=== PATIENT | female | born 1995 | race African-American/Black ===

== ENCOUNTER 2017-03-01 18:20 | Emergency (ER) | payer MEDICAID, OTHER ==
[~2017-03-01] VITALS: Ht 154.9 cm; Wt 50.0 kg
[2017-03-01 18:23] VITALS: BP 121/72; PULSE 90; RESP 20; TEMP 98.5; O2SAT 100
--- NOTE | 2017-03-01 18:33 | PD ---
Physical Exam Date Seen by Provider: Mar 01, 2017 Time Seen by Provider: 18:32 Data Data Last Documented VS Vital Signs Date Time Temp Pulse Resp B/P Pulse Ox O2 Delivery O2 Flow Rate FiO2 03/01/17 18:23 98.5 90 20 121/72 100 Room Air [facility] Supervised Visit with [facility]: No Narrative Course 21 YO F with complaint of ear pain x 1 day. States hit her head on a door. Vitals reviewed. Awaiting bed placement. Scripts No Active Prescriptions or Reported Meds Loni Luo Mar 01, 2017 18:33
[2017-03-01] MEDS ORDERED: OFLO0.3D9 RIGHT EAR (18:41)
--- NOTE | 2017-03-01 18:43 | PD ---
HPI Chief Complaint: ENT Complaint Time Seen by Provider: 18:35 Travel History International Travel<30 days: No Contact w/Intl Traveler<30days: No Traveled to known affect area: No History of Present Illness HPI 21-year-old female here for evaluation of right ear pain. She reports that 1 PM today she was opening the door to her house to let her dogs out when the door hit her in her right ear. She now has pain in her right ear canal, muffled hearing in the right ear. Pain is an aching pain, constant. No alleviating factors. Denies any drainage from the ear. Denies any generalized headache, nausea or vomiting, amnesia. No other complaints. PFSH Past Medical History Bipolar Disorder: Yes Immunizations Current: Yes : 2 Para: 1 Miscarriage: 1 Dilation and Curettage (D&C): Yes Social History Alcohol Use: No Tobacco Use: Yes Substance Use: No Allergies-Medications (Allergen,Severity, Reaction): Coded Allergies: Kiwi (Verified Allergy, Severe, SWELLING OF FACE AND SOB, 03/01/17) Tylenol/Codeine (Verified Allergy, Severe, hives, 03/01/17) Keflex (Verified Adverse Reaction, Intermediate, abdominal cramping and diarrhea, 03/01/17) Reported Meds & Prescriptions Reported Meds & Active Scripts Active Ofloxacin Otic Drops 0.3 % Drops 5 Drop RIGHT EAR DAILY 10 Days Review of Systems Except as stated in HPI: all other systems reviewed are Neg Physical Exam Narrative GENERAL: Well-developed well-nourished female in no acute distress SKIN: Warm and dry. HEAD: Atraumatic. Normocephalic. EYES: Pupils equal and round. No scleral icterus. No injection or drainage. ENT: No nasal bleeding or discharge. Mucous membranes pink and moist. Right tympanic membrane perforation is present. There is some blood noted in the external ear canal. No auricular tenderness. No mastoid tenderness. NECK: Trachea midline. No JVD. NEUROLOGICAL: Awake and alert. No obvious cranial nerve deficits. Motor grossly within normal limits. Normal speech. Data Data Last Documented VS Vital Signs Date Time Temp Pulse Resp B/P Pulse Ox O2 Delivery O2 Flow Rate FiO2 03/01/17 18:23 98.5 90 20 121/72 100 Room Air MDM Medical Decision Making Medical Screen Exam Complete: Yes Emergency Medical Condition: Yes Medical Record Reviewed: Yes Differential Diagnosis Tympanic membrane perforation, contusion, hematoma, temporal fracture Narrative Course 21-year-old female presents with muffled hearing, pain in the right ear canal after a door hit her in the right ear. Examination reveals a tympanic membrane perforation. She has normal neurologic examination. The patient will be treated with ofloxacin otic solution, recommends outpatient follow-up with ENT. Diagnosis Primary Impression: Tympanic membrane perforation Qualified Code: H72.91 - Tympanic membrane perforation, right Referrals: Ear / Nose / Throat Specialist Additional Instructions: Use the medication as prescribed. Avoid getting water in right ear canal. Follow-up with ENT or primary care in 1 week for recheck. Return for any emergent medical conditions. Med/Other Pt SpecificInfo: Prescription(s) given Scripts Ofloxacin Otic Drops 0.3 % Drops5 Drop RIGHT EAR DAILY 10 Days Ref 0 Prov:Jovanny Almaraz MD 03/01/17 Disposition: 01 DISCHARGE HOME Condition: Stable hCava Gonzalez Mar 01, 2017 18:43
[2017-03-22] MEDS ORDERED: PREN29TA PO (13:16)
== END 2017-03-01 19:02 | disposition home or self-care (01) ==
LOC: NEPK 18:20
DX: H72.91 Unspecified perforation of tympanic membrane, right ear (principal); Z72.0 Tobacco use
CPT/HCPCS: 99283

== ENCOUNTER 2017-03-23 20:16 | Emergency (ER) | payer OTHER ==
[~2017-03-23] VITALS: Ht 154.9 cm; Wt 47.3 kg
[~2017-03-23 20:16] MED LIST: OFLO0.3D9 RIGHT EAR; PREN29TA PO
[2017-03-23 20:18] VITALS: BP 121/64; PULSE 92; RESP 18; TEMP 98.4; O2SAT 98
[2017-03-23] MEDS ORDERED: ONDANSETRON HCL 4 MG/2 ML VIAL IVP ONE (20:45)
[2017-03-23] MEDS ORDERED: SODIUM CHLORIDE 0.9% FLUSH 10 ML FLUSH IVF PRN (20:45)
[2017-03-23] MEDS ORDERED: SODIUM CHLOR 0.9% 1000 ML INJ 1,000 ML IV SCH (20:45)
--- NOTE | 2017-03-23 20:48 | PD ---
HPI Chief Complaint: Related Problem Time Seen by Provider: 20:45 Travel History International Travel<30 days: No Contact w/Intl Traveler<30days: No Traveled to known affect area: No History of Present Illness HPI The patient is a G3, P1, A1 female that comes in for nausea and vomiting. She is 5 weeks . She is a frequent visitor to emergency department. She saw her bilingual speech language pathologist 2 days ago and everything was fine. She does have frequency and urgency but denies any dysuria. He does have some slight bilateral flank pain. She denies any fever or vaginal bleeding. She denies any diarrhea. PFSH Past Medical History Bipolar Disorder: Yes Immunizations Current: Yes ?: LMP: 02-02-17 : 2 Para: 1 Miscarriage: 1 Dilation and Curettage (D&C): Yes Social History Alcohol Use: No Tobacco Use: Yes (1ppd) Substance Use: No Allergies-Medications (Allergen,Severity, Reaction): Coded Allergies: Kiwi (Verified Allergy, Severe, SWELLING OF FACE AND SOB, 03/23/17) Tylenol/Codeine (Verified Allergy, Severe, hives, 03/23/17) Keflex (Verified Adverse Reaction, Intermediate, abdominal cramping and diarrhea, 03/23/17) Reported Meds & Prescriptions Reported Meds & Active Scripts Active Zofran (Ondansetron HCl) 4 Mg Tab 4 Mg PO Q6HR PRN Plus Iron 29-1 mg ( Vit-Iron Carbonyl) 1 Tab Tab 1 Tab PO DAILY Ofloxacin Otic Drops 0.3 % Drops 5 Drop RIGHT EAR DAILY 10 Days Review of Systems Except as stated in HPI: all other systems reviewed are Neg Physical Exam Narrative GENERAL: The patient is alert, oriented 3 in minimal apparent distress with her bilateral pelvic discomfort. Her vital signs are normal except for heart rate of 92. SKIN: Focused skin assessment warm/dry. HEAD: Atraumatic. Normocephalic. EYES: Pupils equal and round. No scleral icterus. No injection or drainage. ENT: No nasal bleeding or discharge. Mucous membranes pink and moist. NECK: Trachea midline. No JVD. CARDIOVASCULAR: Regular rate and rhythm. No murmur appreciated. RESPIRATORY: No accessory muscle use. Clear to auscultation. Breath sounds equal bilaterally. GASTROINTESTINAL: Abdomen soft, with minimal discomfort to direct palpation on the bilateral pelvis, nondistended. Hepatic and splenic margins not palpable. No guarding or rebound is present. MUSCULOSKELETAL: No obvious deformities. No clubbing. No cyanosis. No edema. NEUROLOGICAL: Awake and alert. No obvious cranial nerve deficits. Motor grossly within normal limits. Normal speech. PSYCHIATRIC: Appropriate mood and affect; insight and judgment normal. Data Data Last Documented VS Vital Signs Date Time Temp Pulse Resp B/P Pulse Ox O2 Delivery O2 Flow Rate FiO2 03/23/17 20:31 16 03/23/17 20:18 98.4 92 121/64 98 Orders Beta Hcg (Quant/Titer) (03/23/17 20:45) Complete Blood Count With Diff (03/23/17 20:45) Basic Metabolic Panel (Bmp) (03/23/17 20:45) Urinalysis - C+S If Indicated (03/23/17 20:45) Sodium Chloride 0.9% Flush (Ns Flush) (03/23/17 20:45) Ondansetron Inj (Zofran Inj) (03/23/17 20:45) Sodium Chlor 0.9% 1000 Ml Inj (Ns 1000 M (03/23/17 20:45) Labs Laboratory Tests Test 03/23/17 21:05 White Blood Count 12.2 TH/MM3 Red Blood Count 5.06 MIL/MM3 Hemoglobin 11.7 GM/DL Hematocrit 37.3 % Mean Corpuscular Volume 73.6 FL Mean Corpuscular Hemoglobin 23.1 PG Mean Corpuscular Hemoglobin 31.3 % Concent Red Cell Distribution Width 13.2 % Platelet Count 225 TH/MM3 Mean Platelet Volume 9.5 FL Neutrophils (%) (Auto) 74.1 % Lymphocytes (%) (Auto) 19.1 % Monocytes (%) (Auto) 4.7 % Eosinophils (%) (Auto) 1.0 % Basophils (%) (Auto) 1.1 % Neutrophils # (Auto) 9.1 TH/MM3 Lymphocytes # (Auto) 2.3 TH/MM3 Monocytes # (Auto) 0.6 TH/MM3 Eosinophils # (Auto) 0.1 TH/MM3 Basophils # (Auto) 0.1 TH/MM3 CBC Comment AUTO DIFF Urine Collection Type VOIDED Urine Color YELLOW Urine Turbidity CLEAR Urine pH 6.5 Urine Specific [place] 1.011 Urine Protein 30 mg/dL Urine Glucose (UA) NEG mg/dL Urine Ketones NEG mg/dL Urine Occult Blood NEG Urine Nitrite NEG Urine Bilirubin NEG Urine Leukocyte Esterase NEG Urine WBC 0-2 /hpf Urine Squamous Epithelial 6-8 /hpf Cells Urine Transitional Epithelial 0-2 /hpf Cells Urine Bacteria RARE /hpf Microscopic Urinalysis Comment CULT NOT INDICATED Sodium Level 140 MEQ/L Potassium Level 3.4 MEQ/L Chloride Level 104 MEQ/L Carbon Dioxide Level 25.8 MEQ/L Anion Gap 10 MEQ/L Blood Urea Nitrogen 4 MG/DL Creatinine 0.63 MG/DL Estimat Glomerular Filtration 144 ML/MIN Rate Random Glucose 90 MG/DL Calcium Level 9.1 MG/DL Human Chorionic Gonadotropin, [address]303 MIU/ML Quant MDM Medical Decision Making Medical Screen Exam Complete: Yes Emergency Medical Condition: Yes Medical Record Reviewed: Yes Interpretation(s) The CBC shows a white count of 12,200 but is otherwise unremarkable. The basic metabolic profile shows a potassium of 2.4 but is otherwise normal. The urinalysis shows 30 protein but otherwise is normal and culture is not indicated. The quantitative beta-hCG shows 89,653. Differential Diagnosis Hyperemesis gravidarum, pyelonephritis, cystitis, electrolyte disorder, dehydration, Narrative Course The patient has hyperemesis gravidarum. Plan: She is to increase her liquid intake and is given Zofran. She is to follow-up with her bilingual speech language pathologist. Diagnosis Primary Impression: Hyperemesis gravidarum Additional Instructions: Increase clear liquids and make sure you stay hydrated. Follow-up with your bilingual speech language pathologist as soon as possible. The nausea pills one tablet every 6 hours as needed for nausea. Med/Other Pt SpecificInfo: Prescription(s) given Scripts Ondansetron (Zofran)4 Mg Tab4 Mg PO Q6HR PRN (NAUSEA OR VOMITING) #30 TAB Ref 0 Prov:Denny Coelho MD 03/23/17 Disposition: 01 DISCHARGE HOME Condition: Stable Denny Coelho MD Mar 23, 2017 20:48
[2017-03-23 21:16] LABS: BLOOD, URINE NEG (NEG); GLUCOSE,URINE NEG (NEG); KETONE, URINE NEG (NEG); NITRITE,URINE NEG (NEG); PH, URINE 6.5 (5.0-8.5)
[2017-03-23 21:17] LABS: AUTOMATED NEUTROPHIL # 9.1 TH/MM3 (1.8-7.7); BASOPHIL # 0.1 TH/MM3 (0-0.2); BASOPHIL % 1.1 % (0.0-2.0); EOSINOPHIL # 0.1 TH/MM3 (0-0.4); HEMATOCRIT 37.3 % (35.0-46.0); LYMPH % 19.1 % (9.0-44.0); LYMPHOCYTE # 2.3 TH/MM3 (1.0-4.8); MEAN CELL VOLUME 73.6 FL (80.0-100.0); MEAN CORPUSCULAR HEMOGLOBIN 23.1 PG (27.0-34.0); MEAN CORPUSCULAR HGB CONC 31.3 % (32.0-36.0); MONO % 4.7 % (0.0-8.0); NEUT % 74.1 % (16.0-70.0); PLATELET COUNT 225 TH/MM3 (150-450); RED BLOOD COUNT 5.06 MIL/MM3 (4.00-5.30); RED CELL DISTRIBUTION WIDTH 13.2 % (11.6-17.2); WHITE BLOOD COUNT 12.2 TH/MM3 (4.0-11.0)
[2017-03-23 21:21] LABS: HEMO FLAGS AUTO DIFF
[2017-03-23 21:24] LABS: METHOD OF COLLECTION VOIDED; POTASSIUM 3.4 MEQ/L (3.5-5.1); URINE COLOR YELLOW (YELLW/STRAW)
[2017-03-23 21:25] VITALS: BP 122/61; PULSE 84; RESP 18; O2SAT 97
[2017-03-23 21:25] LABS: BACTERIA, URINE RARE /hpf; COMMENT (UR) CULT NOT INDICATED; CULTURE IF INDICATED CULT NOT INDICATED; TRANSITIONAL EPI CELLS, URINE 0-2 /hpf; WBC, URINE 0-2 /hpf (0-5)
[2017-03-23 21:27] LABS: BICARBONATE 25.8 MEQ/L (21.0-32.0)
[2017-03-23] MEDS ORDERED: ZOFR4TAB PO (21:39)
[2017-03-23 21:58] LABS: PLATELET ESTIMATE SMEAR NORMAL (NORMAL); PLATELET MORPHOLOGY NORMAL (NORMAL); SCAN/DIFF AUTO DIFF CONFIRMED
[2017-03-30] MEDS ORDERED: PREN29TA PO (10:11)
[2017-03-30] MEDS ORDERED: ZOFR4TAB3 SL (10:24)
== END 2017-03-23 22:27 | disposition home or self-care (01) ==
LOC: PHED 20:16
DX: O21.0 Mild hyperemesis gravidarum (principal); Z3A.01 Less than 8 weeks gestation of pregnancy; F17.210 Nicotine dependence, cigarettes, uncomplicated
CPT/HCPCS: 80048; 81001; 84702; 85025; 96361; 96374; 99284; J2405; J7030

== ENCOUNTER 2017-04-05 18:57 | Emergency (ER) | payer OTHER ==
[~2017-04-05 18:57] MED LIST changes: -OFLO0.3D9 RIGHT EAR; +ZOFR4TAB3 SL
== END 2017-04-05 19:00 | disposition left against medical advice (07) ==
LOC: NED 18:57
DX: R11.10 Vomiting, unspecified (principal); Z53.21 Procedure and treatment not carried out due to patient leaving prior to being seen by health care provider
CPT/HCPCS: 99281

== ENCOUNTER → 2017-04-06 | Outpatient (CLI) | payer OTHER | LOC: HPND 08:34 | PROVIDERS: ATTEND Family Medicine | DX: Z34.90 Encounter for supervision of normal pregnancy, unspecified, unspecified trimester (principal) | CPT/HCPCS: 76801 ==

== ENCOUNTER → 2017-05-02 | Outpatient (CLI) | payer OTHER ==
[~2017-05-02] MED LIST changes: +FERR325T8 PO
== END ==
LOC: HPND 12:27
PROVIDERS: ATTEND Family Medicine
DX: Z36 Encounter for antenatal screening of mother (principal)
CPT/HCPCS: 36415; 76813

== ENCOUNTER → 2017-06-19 | Outpatient (CLI) | payer OTHER ==
[~2017-06-19] MED LIST changes: -ZOFR4TAB3 SL
== END ==
LOC: HPND 13:05
PROVIDERS: ATTEND Family Medicine
DX: Z36 Encounter for antenatal screening of mother (principal)
CPT/HCPCS: 76805

== ENCOUNTER 2017-08-01 16:07 | Emergency (ER) | payer OTHER ==
[~2017-08-01] VITALS: Ht 154.9 cm; Wt 55.0 kg
[~2017-08-01 16:07] MED LIST changes: +FERR325T18 PO; -FERR325T8 PO
[2017-08-01 16:18] VITALS: BP 137/63; PULSE 98; RESP 16; TEMP 98.9; O2SAT 97
[2017-08-01] MEDS ORDERED: ACETAMINOPHEN 325 MG TAB PO ONE (17:15)
--- NOTE | 2017-08-01 17:20 | RADRPT ---
EXAM DATE/TIME: 08/01/2017 16:55 [facility] COMPARISON: No previous studies available for comparison. INDICATIONS : Left hand pain after patient fell onto hand last night MEDICAL HISTORY : None. SURGICAL HISTORY : None. ENCOUNTER: Initial ACUITY: 1 day PAIN SCORE: 10/10 LOCATION: Left base of 4th and 5th metacarpals FINDINGS: Mildly displaced oblique fracture of the fourth metacarpal. Remaining osseous structures are intact. Joint spaces are maintained. Mild soft tissue prominence about the dorsal hand. CONCLUSION: 1. Mildly displaced oblique fourth metacarpal fracture. Javier Campos MD on August 01, 2017 at 17:18 Board Certified Radiologist. This report was verified electronically.
--- NOTE | 2017-08-01 17:54 | PD ---
HPI . Left hand injury Chief Complaint: Injury Time Seen by Provider: 16:25 Travel History International Travel<30 days: No Contact w/Intl Traveler<30days: No Traveled to known affect area: No History of Present Illness HPI 21-year-old female presents emergency department for evaluation of a left hand injury she sustained when she rolled out of bed last night and landed on her left hand. Patient denies any other injuries during this fall. Patient has a head or losing consciousness. Patient denies hitting her belly. Patient is 6 months at this time. Patient has no other major medical history. Left hand is neurovascularly intact. Patient doesn't take any daily medication outside of vitamin. PFSH Past Medical History Bipolar Disorder: Yes Diminished Hearing: No Immunizations Current: Yes Influenza Vaccination: No ?: LMP: 6 MOS : 2 Para: 1 Miscarriage: 1 Dilation and Curettage (D&C): Yes Social History Alcohol Use: No Tobacco Use: No Substance Use: No Allergies-Medications (Allergen,Severity, Reaction): Coded Allergies: codeine (Unverified Allergy, Severe, hives, 08/01/17) kiwi (Unverified Allergy, Severe, SWELLING OF FACE AND SOB, 08/01/17) cephalexin (Unverified Adverse Reaction, Intermediate, abdominal cramping and diarrhea, 08/01/17) Reported Meds & Prescriptions Reported Meds & Active Scripts Active Ferrous Sulfate 325 Mg (65 Mg Iron) Tablet 325 Mg PO BIDPC Plus Iron 29-1 mg ( Vit-Iron Carbonyl) 1 Tab Tab 1 Tab PO DAILY Review of Systems Except as stated in HPI: all other systems reviewed are Neg Physical Exam Narrative GENERAL: Well-nourished, well-developed 21-year-old female patient in no acute distress. Nontoxic appearing. SKIN: Focused skin assessment warm/dry. HEAD: Normocephalic. Atraumatic. EYES: No scleral icterus. No injection or drainage. NECK: Supple, trachea midline. No JVD or lymphadenopathy. CARDIOVASCULAR: Regular rate and rhythm without murmurs, gallops, or rubs. RESPIRATORY: Breath sounds equal bilaterally. No accessory muscle use. GASTROINTESTINAL: Rounded, 6 months . Nontender. MUSCULOSKELETAL: Dorsal aspect of left hand erythematous and ecchymotic proximal to the fourth and fifth phalanges. Data Data Last Documented VS Vital Signs Date Time Temp Pulse Resp B/P (MAP) Pulse Ox O2 Delivery O2 Flow Rate FiO2 08/01/17 16:18 98.9 98 16 137/63 (87) 97 Orders Orders Hand, Complete (Cpr8esf) (08/01/17 16:39) Ice/Cold Pack (08/01/17 16:39) Acetaminophen (Tylenol) (08/01/17 17:15) Splint Or Brace Apply/Monitor (08/01/17 17:55) Ed Discharge Order (08/01/17 17:55) MDM Medical Decision Making Medical Screen Exam Complete: Yes Emergency Medical Condition: Yes Differential Diagnosis Differential diagnoses include but not limited to left hand sprain, left hand contusion, left hand fracture Narrative Course 21-year-old female patient presents emergency department for evaluation of left hand pain after she rolled out of bed last night landed on her left hand. Patient is 6 months . Patient denies any other injuries during this fall. X-ray of the left hand ordered and pending. Ice applied to left hand. Tylenol ordered for pain. X-ray shows mildly displaced oblique fourth metacarpal fracture. Patient case discussed with my attending Dr. Valenzuela and patient is placed in a volar splint and discharged home with instructions to follow-up with Dr. Galeas, a hand surgeon. Patient instructed to use Tylenol for pain management. Rice therapy instructions given for left hand. Patient discharged home. Last Impressions Hand X-Ray 08/01/17 1639 Signed Impressions: Service Date/Time: Tuesday, August 01, 2017 16:55 - CONCLUSION: 1. Mildly displaced oblique fourth metacarpal fracture. Javier Campos MD Diagnosis Primary Impression: Left hand fracture Qualified Codes: S62.92XA - Unspecified fracture of left wrist and hand, initial encounter for closed fracture Referrals: Rian Galeas III, MD Patient Instructions: General Instructions, Hand Fracture (ED) Additional Instructions: Please return to emergency department if your symptoms return or worsen. Follow up with hand surgeon. Ice therapy to left hand, rest, ice, splint and elevate when resting. Disposition: 01 DISCHARGE HOME Condition: Stable Samara Angulo LISSETT Aug 01, 2017 17:54
== END 2017-08-01 18:03 | disposition home or self-care (01) ==
LOC: PHEFT 16:07
DX: S62.305A Unspecified fracture of fourth metacarpal bone, left hand, initial encounter for closed fracture (principal); W06.XXXA Fall from bed, initial encounter; Y92.003 Bedroom of unspecified non-institutional (private) residence as the place of occurrence of the external cause
CPT/HCPCS: 29125; 73130

== ENCOUNTER → 2017-08-03 | Emergency (ER) | payer OTHER ==
[2017-08-03 15:54] VITALS: BP 140/73; PULSE 107; RESP 14; TEMP 99.2; O2SAT 100
--- NOTE | 2017-08-03 16:36 | PD ---
HPI Chief Complaint 21-year-old 3 para 1 AB 1 with an EDC of 11/07/17 who is 26 weeks and comes due to nausea. She had a prescription for Zofran but this causes constipation. She reports not having thrown up today. She was seen in the emergency room 2 days ago for a broken ring finger on her left hand secondary to a fall at home. She is concerned because of loss of feeling in her hand. Travel History International Travel<30 Days: No Contact w/Intl Traveler<30Days: No Known Affected Area: No History Past Medical History Medical History: Denies Significant Hx Obstetric History Obstetric History Vaginal delivery 1, SAB with D&C 1 Local care reported Past Surgical History Narrative Surgical D&C Family History Family History: Negative Social History Alcohol Use: No Tobacco Use: No Substance Abuse: No Allergies-Medications (Allergen,Severity, Reaction): Coded Allergies: codeine (Unverified Allergy, Severe, hives, 08/01/17) kiwi (Unverified Allergy, Severe, SWELLING OF FACE AND SOB, 08/01/17) cephalexin (Unverified Adverse Reaction, Intermediate, abdominal cramping and diarrhea, 08/01/17) Home Meds Active Scripts Ferrous Sulfate (Ferrous Sulfate) 325 Mg (65 Mg Iron) Tablet, 325 MG PO BIDPC for Nutritional Supplement, #60 TAB 11 Refills Prov:Adrien Centeno MD R3 06/20/17 Vit-Iron Carbonyl ( Plus Iron 29-1 mg) 1 Tab Tab, 1 TAB PO DAILY for Nutritional Supplement, #30 TAB 11 Refills Prov:Sol Mueller MD, R3 03/30/17 Review of Systems Except as stated in HPI: all other systems reviewed are Neg Physical Exam Vital Signs Date Time Temp Pulse Resp B/P (MAP) Pulse Ox O2 Delivery O2 Flow Rate FiO2 08/03/17 15:54 99.2 107 14 140/73 (95) 100 Narrative GENERAL: Well-nourished, well-developed patient. SKIN: Warm and dry. HEAD: Normocephalic and atraumatic. EYES: No scleral icterus. No injection or drainage. ENT: No nasal drainage noted. Mucous membranes pink. Airway patent. NECK: Supple, trachea midline. No JVD. CARDIOVASCULAR: Regular rate and rhythm without murmurs, gallops, or rubs. RESPIRATORY: Breath sounds equal bilaterally. No accessory muscle use. BREASTS: Bilateral exam showed no masses , no retractions, no nipple discharge. ABDOMEN/GI: Abdomen soft, non-tender, bowel sounds present, no rebound, no guarding Gravid to [-] weeks size Fundal Height: [-] GENITOURINARY: External Genitalia: intact and normal in appearance BUS glands: [-] Cervix: [-] Dilatation: [-] Effacement: [-] Station: [-] Presentation: [-] Membranes: [intact or ruptured] Uterine Contractions: [-] FHT's: Category: [-] Baseline: [-] Reactive: [-] Variability: [-] Decels: [-] EXTREMITIES: No cyanosis or edema. Normal radial pulse in the left arm. Digits are warm to the touch with good perfusion of the nailbeds BACK: Nontender without obvious deformity. No CVA tenderness. NEUROLOGICAL: Awake and alert. Motor and sensory grossly within normal limits. Five out of 5 muscle strength in all muscle groups. Normal speech. MDM Medical Record Reviewed: Yes Narrative Course / MDM Assessment: 26 week intrauterine with associated nausea, #2 status post left hand and arm trauma Plan: Prescription was given for Phenergan 25 mg tablets to take 1 every 6 hours as needed for nausea. Recommended that she report to emergency department for further evaluation of her left arm. Diagnosis Diagnosis: Primary Impression: 26 weeks gestation of Additional Impression: Nausea and vomiting during Disposition: 01 DISCHARGE HOME Condition: Good Jovanny Pleitez MD Aug 03, 2017 16:36
== END | disposition home or self-care (01) ==
LOC: HOBED 15:53
DX: O21.9 Vomiting of pregnancy, unspecified (principal); Z3A.26 26 weeks gestation of pregnancy; Z79.899 Other long term (current) drug therapy; Z88.5 Allergy status to narcotic agent; Z88.1 Allergy status to other antibiotic agents
CPT/HCPCS: 99283

== ENCOUNTER 2017-08-20 17:38 | Emergency (ER) | payer OTHER ==
[2017-08-20] MEDS ORDERED: LACTATED RINGER'S 1000 ML INJ 1,000 ML IV SCH (18:10)
[2017-08-20 18:15] VITALS: PULSE 91
[2017-08-20 18:20] VITALS: PULSE 101
[2017-08-20 18:25] VITALS: PULSE 103
[2017-08-20 18:30] VITALS: TEMP 98.3
[2017-08-20 18:40] VITALS: PULSE 96
--- NOTE | 2017-08-20 18:42 | PD ---
HPI Chief Complaint Contractions Date Seen: Aug 20, 2017 Time Seen: 18:20 Travel History International Travel<30 Days: No Contact w/Intl Traveler<30Days: No Known Affected Area: No History of Present Illness HPI 21-year-old at 28/5 weeks gestation presenting with a one-day history of sharp intermittent cramping in her lower abdomen/pelvis as well as some subjective fevers. Denies dysuria, chest pain, shortness of breath. Pain feels like contractions to her. Endorses vaginal spotting, no yaya bleeding. Endorses vaginal discharge. No leakage of fluid. Normal movement. Last sexual intercourse 2 days ago. History Past Medical History Medical History: Denies Significant Hx Obstetric History Obstetric History Two miscarriages (one first trimester, one stillbirth near term) Past Surgical History Narrative Surgical D&C after miscarriage Family History Family History: Negative Social History Alcohol Use: No Tobacco Use: No Substance Abuse: No Allergies-Medications (Allergen,Severity, Reaction): Coded Allergies: codeine (Unverified Allergy, Severe, hives, 08/20/17) kiwi (Unverified Allergy, Severe, SWELLING OF FACE AND SOB, 08/20/17) cephalexin (Unverified Adverse Reaction, Intermediate, abdominal cramping and diarrhea, 08/01/17) Home Meds Active Scripts Ferrous Sulfate (Ferrous Sulfate) 325 Mg (65 Mg Iron) Tablet, 325 MG PO BIDPC for Nutritional Supplement, #60 TAB 11 Refills Prov:Adrien Centeno MD R3 06/20/17 Vit-Iron Carbonyl ( Plus Iron 29-1 mg) 1 Tab Tab, 1 TAB PO DAILY for Nutritional Supplement, #30 TAB 11 Refills Prov:Sol Mueller MD, R3 03/30/17 Review of Systems Except as stated in HPI: all other systems reviewed are Neg Physical Exam Narrative GENERAL: Well-nourished, well-developed patient. SKIN: Warm and dry. HEAD: Normocephalic and atraumatic. EYES: No scleral icterus. No injection or drainage. ENT: No nasal drainage noted. Mucous membranes pink. Airway patent. CARDIOVASCULAR: Regular rate and rhythm without murmurs, gallops, or rubs. RESPIRATORY: Breath sounds equal bilaterally. No accessory muscle use. 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 Exam reveals closed cervix appearing mildly erythematous with no yaya friability. Significant tenderness present during exam. Dilation: Closed Effacement: Thick Presentation: High Membranes: Intact Contractions: Uterine irritability noted FHT's: Category: 1 Baseline: 140 Reactive: Y Variability: moderate Decels: N EXTREMITIES: No cyanosis or edema. NEUROLOGICAL: Awake and alert. Motor and sensory grossly within normal limits. Normal speech. BACK: No CVA tenderness Data Data Vital Signs Reviewed: Yes Orders Orders Vital Signs (Adult) .ON ADMISSION (08/20/17 18:10) ^ Labor Status (08/20/17 18:10) Urinalysis - C+S If Indicated (08/20/17 18:10) ^ Non Stress Test (08/20/17 18:10) ^ Hydration (08/20/17 18:10) Fibronectin (08/20/17 18:10) Wet Prep Profile (08/20/17 18:10) Lactated Ringer's 1000 Ml Inj (Lr 1000 M (08/20/17 18:10) Ob/Psych Drug Screen, Urine (08/20/17 18:10) Fentanyl Inj (Fentanyl Inj) (08/20/17 18:30) Gc And Chlamydia Pcr (08/20/17 18:27) MDM Medical Record Reviewed: Yes Narrative Course / MDM 21 yo at 28/5 weeks presenting with contractions #1 IUP Category 1 tracing, reassuring - Routine f/u with PCP #2 Pelvic pain Intermittent pelvic pain. No UTI symptoms. Mild irregular contractions noted on monitor, irregular in shape, may just be uterine irritability UA negative for UTI FFN negative - Unable to obtain IV - Oral hydration - Tylenol 650 mg once now for pain #3 Cervicitis Cervix clinically, questionable tenderness. Wet prep negative for BV, Trich, yeast - GC/Chlamydia PCR & culture pending. F/u as outpatient (message to be sent to PCP Dr. Ki Centeno) sdw Dr. Myers Diagnosis Diagnosis: Primary Impression: Pelvic pain affecting in third trimester, antepartum Ruled Out: UTI (urinary tract infection), labor Disposition: DISCHARGE HOME Condition: Good Patient Instructions: Early Labor Signs (ED), General Instructions Brad Desouza MD R2 Aug 20, 2017 18:42
[2017-08-20] MEDS ORDERED: ACETAMINOPHEN 325 MG TAB PO ONE (19:00)
[2017-08-20 19:06] VITALS: BP 112/63; PULSE 90; RESP 16; TEMP 97.7
[2017-08-20 19:23] LABS: BLOOD, URINE NEG (NEG); COMMENT (UR) CULT NOT INDICATED; CULTURE IF INDICATED CULT NOT INDICATED; GLUCOSE,URINE NEG (NEG); KETONE, URINE NEG (NEG); MUCUS URINE FEW /lpf (OCC); NITRITE,URINE NEG (NEG); PH, URINE 6.5 (5.0-8.5); SQUAMOUS EPITHELIAL CELL URINE 3 /hpf (0-5); URINE COLOR YELLOW (YELLW/STRAW)
[2017-08-20 21:15] LABS: CHLAMYDIA PCR NOT DETECTED (NOT DETECT); NEISSERIA PCR NOT DETECTED (NOT DETECT)
== END 2017-08-20 20:14 | disposition home or self-care (01) ==
LOC: HOBED 17:38
DX: O26.893 Other specified pregnancy related conditions, third trimester (principal); R10.2 Pelvic and perineal pain; N89.8 Other specified noninflammatory disorders of vagina; Z88.5 Allergy status to narcotic agent; Z88.8 Allergy status to other drugs, medicaments and biological substances
CPT/HCPCS: 80307; 81001; 82731; 86403; 87070; 87081; 87210; 87491; 87591; 99283

== ENCOUNTER 2017-11-05 15:11 | Emergency (ER) | payer OTHER ==
[2017-11-05 15:13] VITALS: BP 131/88; PULSE 71; RESP 14; TEMP 98.1; O2SAT 100
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
== END 2017-11-05 16:09 | disposition home or self-care (01) ==
LOC: NEPK 15:11
DX: L76.34 Postprocedural seroma of skin and subcutaneous tissue following other procedure (principal); F31.9 Bipolar disorder, unspecified
CPT/HCPCS: 99281